=== PATIENT | female | born 1955 | race Caucasian/White ===

== ENCOUNTER 2017-01-08 09:00 | Outpatient (CLI) | payer BC | END 2017-01-08 19:17 | disposition home or self-care (01) | LOC: SMA 09:00 | PROVIDERS: ATTEND Internal Medicine | DX: N63.21 Unspecified lump in the left breast, upper outer quadrant (principal); J44.9 Chronic obstructive pulmonary disease, unspecified; M47.894 Other spondylosis, thoracic region | CPT/HCPCS: 71030; 76641; G0204 ==

== ENCOUNTER 2017-02-10 08:50 | Outpatient (CLI) | payer BC | END 2017-02-10 20:59 | disposition home or self-care (01) | LOC: SUS 08:50 | PROVIDERS: ATTEND Internal Medicine | DX: D25.9 Leiomyoma of uterus, unspecified (principal); Z78.0 Asymptomatic menopausal state | CPT/HCPCS: 76830-TC; 76857 ==

== ENCOUNTER 2017-04-24 09:42 | Outpatient (CLI) | payer BC | END 2017-04-24 17:17 | disposition home or self-care (01) | LOC: SUS 09:42 | PROVIDERS: ATTEND Internal Medicine | DX: N63.20 Unspecified lump in the left breast, unspecified quadrant (principal) | CPT/HCPCS: 76641 ==

== ENCOUNTER 2017-06-15 08:20 | Outpatient (CLI) | payer BC | END 2017-06-15 17:46 | disposition home or self-care (01) | LOC: SUS 08:20 | PROVIDERS: ATTEND Obstetrics & Gynecology | DX: N83.202 Unspecified ovarian cyst, left side (principal) | CPT/HCPCS: 76830-TC; 76857 ==

== ENCOUNTER 2017-10-29 08:39 | Outpatient (CLI) | payer BC | END 2017-10-29 20:13 | disposition home or self-care (01) | LOC: SUS 08:39 | PROVIDERS: ATTEND Obstetrics & Gynecology | DX: D39.12 Neoplasm of uncertain behavior of left ovary (principal); Z78.0 Asymptomatic menopausal state | CPT/HCPCS: 76830-TC; 76857 ==

== ENCOUNTER 2018-08-12 09:23 | Outpatient (CLI) | payer OTHER, MEDICARE | END 2018-08-12 20:44 | disposition home or self-care (01) | LOC: SMA 09:23 | PROVIDERS: ATTEND Obstetrics & Gynecology | DX: N63.20 Unspecified lump in the left breast, unspecified quadrant (principal) | CPT/HCPCS: 76642; 77065 ==